=== PATIENT | female | born 2000 | race Caucasian/White ===

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

== ENCOUNTER 2021-05-10 20:08 | Emergency (ER) | payer SELFPAY ==
--- NOTE | 2021-05-10 20:24 | NUR ---
CALLED PT TO LOBBY, OUTSIDE, NO ANSWER AT THIS TIME.
--- NOTE | 2021-05-10 20:38 | NUR ---
CALLED PT TO LOBBY, OUTSIDE, NO ANSWER AT THIS TIME.
--- NOTE | 2021-05-10 21:04 | NUR ---
PATIENT LEFT WITHOUT BEING SEEN BY DR. aVn. NO FURTHER CARE PROVIDED FOR PATIENT.
== END 2021-05-10 21:09 | disposition left against medical advice (07) ==
LOC: MED 20:08
DX: R10.9 Unspecified abdominal pain (principal); Z53.21 Procedure and treatment not carried out due to patient leaving prior to being seen by health care provider